=== PATIENT | female | born 1985 | race Caucasian/White ===

== ENCOUNTER 2022-05-21 00:08 | Emergency (ER) | payer OTHER ==
[2022-05-21 03:11] LABS: HEMOGLOBIN 13.7 gm/dl (12.3-15.3); RED BLOOD COUNT 4.59 M/UL (4.00-5.10); WHITE BLOOD COUNT 11.2 K/UL (4.5-11.0)
[2022-05-21 03:27] LABS: BUN/CREATININE RATIO 12 (0-10)
[2022-05-21] MEDS ORDERED: ZOFRAN ODT 4 MG4 MG PO (04:39)
[2022-05-21] MEDS ORDERED: CEFUROXIME500 MG PO (04:39)
== END 2022-05-21 05:19 | disposition home or self-care (01) ==
LOC: ER1 00:08
PROVIDERS: Physician Assistant
DX: N39.0 Urinary tract infection, site not specified (principal); Z90.710 Acquired absence of both cervix and uterus
CPT/HCPCS: 80053; 81001; 82150; 83605; 83690; 85025; 87077; 87086; 87186; 96374; 96375; 99284; J0696; J1885; Q9967